=== PATIENT | female | born 1995 | race Two or more races ===

== ENCOUNTER 2018-08-12 07:18 | Emergency (ER) | payer OTHER ==
[2018-08-12 07:24] VITALS: BP 114/69
[2018-08-12] MEDS ORDERED: IBUPROFEN 800 MG TABLET PO STA (07:55)
--- NOTE | 2018-08-12 07:58 | ED Physician Documentation ---
PD HPI NECK PAIN - Stated complaint Stated Complaint: NECK PAIN - Chief complaint Chief Complaint: Back Pain - History obtained from History obtained from: Patient - History of Present Illness Timing - onset: How many hours ago (2) Timing - details: Other (Getting better.) Location: Lower, Left Quality: Sharp Similar symptoms before: Has not had sx before - Additional information Additional information: The patient is a 23-year-old female who presents with pain and spasms in her neck and left shoulder. Her symptoms started about 2 hours prior to arrival while she was doing stretching exercises. She felt a pop in her neck, and was initially not able to move her arm enough to dress herself. Since that time her symptoms have been improving. She denies headache, numbness or weakness. She is right hand dominant. She denies history of similar symptoms in the past. She denies any recent activity that is different from usual. Review of Systems Constitutional: denies: Fever Nose: denies: Congestion Throat: denies: Sore throat Cardiac: denies: Chest pain / pressure Respiratory: denies: Dyspnea, Cough GI: denies: Abdominal Pain, Nausea, Vomiting : denies: Dysuria Skin: denies: Rash Musculoskeletal: reports: Neck pain (Left sided, into left shoulder) Neurologic: denies: Focal weakness, Numbness, Headache PD PAST MEDICAL HISTORY - Past Medical History Cardiovascular: None Respiratory: None Neuro: None Musculoskeletal: None - Present Medications Home Medications: Ambulatory Orders Medication Instructions Recorded Confirmed Cyclobenzaprine [Flexeril] 10 mg PO TID PRN #20 tablet 08/12/18 - Allergies Allergies/Adverse Reactions: Allergies Allergy/AdvReac Type Severity Reaction Status Date / Time No Known Drug Allergies Allergy Verified 08/12/18 07:24 - Social History Does the pt smoke?: No Smoking Status: Never smoker PD ED PE NORMAL - Vitals Vital signs reviewed: Yes (normal) - General General: Alert and oriented X 3, Well developed/nourished - HEENT HEENT: Atraumatic, Pharynx benign - Neck Neck: Supple, no meningeal sign, No bony TTP, Other (There is mild tenderness to palpation along the left paracervical musculature, and the left trapezius musculature. There is no tenderness along the spinous processes. She came turn her head at least 45 in each direction, and is able to flex and extend her neck.) - Cardiac Cardiac: RRR, No murmur - Respiratory Respiratory: No respiratory distress, Clear bilaterally - Abdomen Abdomen: Soft, Non tender - Back Back: No CVA TTP - Derm Derm: No rash - Extremities Extremities: Other (Mild tenderness to palpation over the left trapezius musculature. She is able to raise her arm above her head.) - Neuro Neuro: Alert and oriented X 3, No motor deficit, No sensory deficit Results - Vitals Vitals: Oxygen O2 Source Room air PD MEDICAL DECISION MAKING - ED course Complexity details: considered differential, d/w patient ED course: The patient's presentation is most consistent with cervical muscle spasms. There is no clinical evidence to suggest bony abnormality, and I do not think imaging studies are clinically indicated. Treatment in the emergency department included administration of ibuprofen 800 mg orally. She is being discharged with a prescription for Flexeril. 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 Departure - Departure Disposition: 01 Home, Self Care Clinical Impression: Muscle spasms of neck Condition: Stable Instructions: ED Spasm Neck No Injury Follow-Up: [facility] [Provider Group] Prescriptions: Cyclobenzaprine [Flexeril] 10 mg PO TID PRN #20 tablet PRN Reason: Spasms Comments: Apply ice pack to your neck intermittently for the next 2 days. You can use ibuprofen, up to 800 mg 3 times daily for its anti-inflammatory effect. You can use Flexeril as prescribed if needed for muscle spasms. Let pain be your guide to activity level. Follow-up with your primary physician within 2 weeks if not completely resolved. Return to the emergency department if you develop increasing pain, or otherwise worsening symptoms. Forms: Activity restrictions Discharge Date/Time: 08/12/18 08:19
== END 2018-08-12 08:19 | disposition home or self-care (01) ==
LOC: ED 07:18
DX: M62.838 Other muscle spasm (principal)
CPT/HCPCS: 99283; A9270

== ENCOUNTER 2018-09-09 18:03 | Emergency (ER) | payer OTHER ==
[2018-09-09] MEDS ORDERED: AMOX/CLAV 875 MG/125 MG TABLET PO STA (20:37)
--- NOTE | 2018-09-09 20:40 | ED Physician Documentation ---
PD HPI URI - Stated complaint Stated Complaint: NASAL CONGESTION/BILAT EAR PRESSURE - Chief complaint Chief Complaint: Resp - History obtained from History obtained from: Patient - History of Present Illness Timing - onset: Other (This is a healthy 23-year-old woman without recent travel who is been sick for about a week, started with classic cough and cold symptoms but then progressed to increased nasal congestion and pressure without fevers. No possibility of .) Review of Systems Constitutional: denies: Fever, Chills Ears: denies: Ear pain Nose: reports: Rhinorrhea / runny nose, Congestion, Sinus pressure / pain Throat: denies: Sore throat Respiratory: denies: Cough PD PAST MEDICAL HISTORY - Past Medical History Cardiovascular: None Respiratory: None Neuro: None Musculoskeletal: None - Present Medications Home Medications: Ambulatory Orders Medication Instructions Recorded Confirmed Amox/Clav 875/125 [Augmentin] 1 each PO Q12H #20 tablet 09/09/18 Guaifenesin/Pseudoephedrne HCl 1 each PO BID PRN #20 tab.er.12h 09/09/18 [Mucinex D ER 600-60 mg Tablet] Mometasone Furoate [Nasonex] 1 spray NS BID #1 spray.pump 09/09/18 - Allergies Allergies/Adverse Reactions: Allergies Allergy/AdvReac Type Severity Reaction Status Date / Time No Known Drug Allergies Allergy Verified 09/09/18 18:09 - Social History Does the pt smoke?: No Smoking Status: Never smoker PD ED PE NORMAL - Vitals Vital signs reviewed: Yes - General General: Alert and oriented X 3, No acute distress - HEENT HEENT: PERRL, EOMI, Other (Mild right maxillary sinus tenderness, swollen turbinates, TMs normal.) - Neck Neck: Supple, no meningeal sign, No bony TTP - Cardiac Cardiac: RRR, No murmur - Respiratory Respiratory: No respiratory distress, Clear bilaterally - Derm Derm: No rash Results - Vitals Vitals: Vital Signs - 24 hr 09/09/18 18:08 Temperature 36.5 C Heart Rate 78 Respiratory 20 Rate Blood Pressure 126/78 O2 Saturation 100 Oxygen O2 Source Room air PD MEDICAL DECISION MAKING - ED course ED course: Given the time course and "double sickening, she does fit IDSA criteria for sinusitis treatment with antibiotics. Departure - Departure Disposition: 01 Home, Self Care Clinical Impression: Sinusitis Qualifiers: Sinusitis location: maxillary Chronicity: acute Recurrence: non-recurrent Qualified Code(s): J01.00 - Acute maxillary sinusitis, unspecified Condition: Good Record reviewed to determine appropriate education?: Yes Instructions: ED Sinusitis Abx Tx Prescriptions: Amox/Clav 875/125 [Augmentin] 1 each PO Q12H #20 tablet Guaifenesin/Pseudoephedrne HCl [Mucinex D ER 600-60 mg Tablet] 1 each PO BID PRN #20 tab.er.12h PRN Reason: congestion Mometasone Furoate [Nasonex] 1 spray NS BID #1 spray.pump Comments: Call your doctor to arrange a follow-up appointment, make the next available appointment. In the interim, return anytime if worse or if new symptoms develop.
[2018-09-09 20:46] VITALS: BP 131/80
== END 2018-09-09 20:47 | disposition home or self-care (01) ==
LOC: ED 18:03
DX: J01.00 Acute maxillary sinusitis, unspecified (principal)
CPT/HCPCS: 99283; A9270